=== PATIENT | female | born 1965 | race Caucasian/White ===

== ENCOUNTER → 2016-04-29 | Outpatient (CLI) | payer MEDICARE, OTHER ==
[~2016-04-29] MED LIST: AZELASTINE; BREO ELLIPTA 11 EACH INH; CLARITIN 10MG T10 MG PO; FLONASE ALLER15.8 ML; IBANDRONATE SO150 MG PO; IBUPROFEN600 MG PO; LACTULOSE10 GM/15 M PO; LIPITOR TAB 2020 MG PO; MONTELUKAST SOD10 MG PO; PERCOCET 7.5-31 EACH PO; POLYETHYLENE GLY1 GM MC; PROAIR HFA8.5 GM INH; SUDAFED 12 HOU120 MG PO; TORSEMIDE20 MG PO
== END ==
LOC: KOH-I 09:54
DX: J32.8 Other chronic sinusitis (principal)
CPT/HCPCS: 70486

== ENCOUNTER → 2016-05-19 | Outpatient (CLI) | payer MEDICARE, OTHER ==
[2016-05-19 09:13] LABS: HEMOGLOBIN 15.1 gm/dl (12.3-15.3); RED BLOOD COUNT 4.83 M/UL (4.00-5.10); WHITE BLOOD COUNT 13.1 K/UL (4.5-11.0)
[2016-05-19 09:33] LABS: BUN/CREATININE RATIO 15 (0-10)
== END ==
LOC: OPSV2 08:00
PROVIDERS: Obstetrics & Gynecology
DX: Z01.812 Encounter for preprocedural laboratory examination (principal); Z30.432 Encounter for removal of intrauterine contraceptive device; Z88.5 Allergy status to narcotic agent; Z88.8 Allergy status to other drugs, medicaments and biological substances; Z88.6 Allergy status to analgesic agent; Z91.040 Latex allergy status
CPT/HCPCS: 36415; 80048; 81001; 85027

== ENCOUNTER → 2016-05-23 | Day surgery (SDC) | payer MEDICARE, OTHER ==
[2016-05-23 09:30] LABS: HEMOGLOBIN 14.2 gm/dl (12.3-15.3); RED BLOOD COUNT 4.62 M/UL (4.00-5.10); WHITE BLOOD COUNT 11.5 K/UL (4.5-11.0)
== END | disposition home or self-care (01) ==
LOC: OR 07:30
PROVIDERS: Obstetrics & Gynecology
PROC: 0UPD8HZ Removal of Contraceptive Device from Uterus and Cervix, Via Natural or Artificial Opening Endoscopic (ICD-10-PCS; principal; 2016-05-23 09:30)
DX: Z30.432 Encounter for removal of intrauterine contraceptive device (principal); N88.2 Stricture and stenosis of cervix uteri; N94.10 Unspecified dyspareunia; G89.29 Other chronic pain; M54.9 Dorsalgia, unspecified; E78.2 Mixed hyperlipidemia; R12 Heartburn; J43.9 Emphysema, unspecified; J45.909 Unspecified asthma, uncomplicated; F17.210 Nicotine dependence, cigarettes, uncomplicated; Z87.19 Personal history of other diseases of the digestive system; Z88.6 Allergy status to analgesic agent; Z88.8 Allergy status to other drugs, medicaments and biological substances; Z91.040 Latex allergy status; Z79.899 Other long term (current) drug therapy; Z90.49 Acquired absence of other specified parts of digestive tract; Z90.89 Acquired absence of other organs
CPT/HCPCS: 20680; 36415; 84703; 85027; J1885; J2250; J2795; J7120

== ENCOUNTER 2020-07-29 18:51 | Emergency (ER) | payer MEDICARE, OTHER ==
[~2020-07-29 18:51] MED LIST changes: +DIFLUCAN150 MG PO; +PREDNISONE 50 M50 MG PO; +VIBRAMYCIN100 MG PO
== END 2020-07-29 20:10 | disposition left against medical advice (07) ==
LOC: ER1 18:51
DX: Z53.21 Procedure and treatment not carried out due to patient leaving prior to being seen by health care provider (principal)

== ENCOUNTER → 2020-08-16 | Outpatient (CLI) | payer MEDICARE, OTHER | LOC: KOH-I 15:14 | DX: M25.571 Pain in right ankle and joints of right foot (principal); M79.671 Pain in right foot | CPT/HCPCS: 73610; 73630 ==

== ENCOUNTER → 2020-08-24 | Outpatient (CLI) | payer MEDICARE, OTHER | LOC: KOH-I 08:24 | DX: S86.311A Strain of muscle(s) and tendon(s) of peroneal muscle group at lower leg level, right leg, initial encounter (principal); M19.071 Primary osteoarthritis, right ankle and foot | CPT/HCPCS: 73721 ==

== ENCOUNTER 2020-12-31 08:49 | Emergency (ER) | payer MEDICARE, OTHER ==
[2020-12-31] MEDS ORDERED: AUGMENTIN 875-1 EACH PO (09:16)
[2020-12-31] MEDS ORDERED: NAPROSYN500 MG PO (09:16)
== END 2020-12-31 09:40 | disposition home or self-care (01) ==
LOC: ER1 08:49
DX: K02.9 Dental caries, unspecified (principal); K04.7 Periapical abscess without sinus; F17.200 Nicotine dependence, unspecified, uncomplicated; E78.5 Hyperlipidemia, unspecified
CPT/HCPCS: 96372; 99282; J1885

== ENCOUNTER → 2021-02-18 | Outpatient (CLI) | payer MEDICARE, OTHER ==
[~2021-02-18] MED LIST changes: +AUGMENTIN 875-1 EACH PO; +NAPROSYN500 MG PO
== END ==
LOC: EXRD 08:54
DX: M81.0 Age-related osteoporosis without current pathological fracture (principal); E78.5 Hyperlipidemia, unspecified; F41.9 Anxiety disorder, unspecified; E55.9 Vitamin D deficiency, unspecified; G43.909 Migraine, unspecified, not intractable, without status migrainosus; M85.88 Other specified disorders of bone density and structure, other site; M85.852 Other specified disorders of bone density and structure, left thigh
CPT/HCPCS: 77080

== ENCOUNTER → 2021-05-07 | Outpatient (CLI) | payer MEDICARE, OTHER ==
[~2021-05-07] MED LIST changes: +BENADRYL25 MG PO; +OMEPRAZOLE40 MG PO; +PROBIO SLIM PO; +VITAMIN D350 MCG PO
[2021-05-07 09:56] LABS: HEMOGLOBIN 14.2 gm/dl (12.3-15.3); RED BLOOD COUNT 4.64 M/UL (4.00-5.10); WHITE BLOOD COUNT 9.8 K/UL (4.5-11.0)
== END ==
LOC: OPSV2 08:00
PROVIDERS: Obstetrics & Gynecology
DX: Z01.812 Encounter for preprocedural laboratory examination (principal); N90.89 Other specified noninflammatory disorders of vulva and perineum
CPT/HCPCS: 36415; 81001; 85025

== ENCOUNTER → 2021-08-01 | Outpatient (CLI) | payer MEDICARE, OTHER ==
[~2021-08-01] MED LIST changes: +COLACE 100MG C100 MG PO; +IBUPROFEN800 MG PO; +PERCOCET 10-321 EACH PO; +PROLIA INJ60 MG/1 ML SC; +PROVENTIL HFA6.7 GM INH
== END ==
LOC: KOH-I 09:55
DX: M51.16 Intervertebral disc disorders with radiculopathy, lumbar region (principal); E78.5 Hyperlipidemia, unspecified; F41.9 Anxiety disorder, unspecified; G43.909 Migraine, unspecified, not intractable, without status migrainosus; E55.9 Vitamin D deficiency, unspecified; M43.9 Deforming dorsopathy, unspecified; M81.0 Age-related osteoporosis without current pathological fracture
CPT/HCPCS: 72100; 73502

== ENCOUNTER → 2021-08-28 | Outpatient (CLI) | payer MEDICARE, OTHER | LOC: MRI 10:28 | DX: S12.9XXA Fracture of neck, unspecified, initial encounter (principal); M51.37 Other intervertebral disc degeneration, lumbosacral region; M48.07 Spinal stenosis, lumbosacral region; M43.16 Spondylolisthesis, lumbar region; Z78.0 Asymptomatic menopausal state | CPT/HCPCS: 72148 ==